=== PATIENT | female | born 1980 | race Caucasian/White ===

== ENCOUNTER 2019-01-12 10:30 | Emergency (ER) | payer OTHER ==
[~2019-01-12] VITALS: Ht 170.2 cm; Wt 60.8 kg
[2019-01-12 10:30] VITALS: BP 111/52
--- NOTE | 2019-01-12 10:30 | NUR ---
PATIENT BIB W/C TO ER BED 1.
--- NOTE | 2019-01-12 10:35 | NUR ---
PT IS A 38 Y/O FEMALE WHO PRESENTS TO THE ED C/O N/V/D. PT STATES THAT IT STARTED X2 DAYS AGO. PT REPORTS 5/10 ACHING ABD PAIN THAT DOES NOT RADIATE. PT DENIES CP, SOB, REPORTS NAUSEA/VOMITING/DIARRHEA. PT AWAKE AND ALERT, RR EVEN/UNLABORED. PT REPOSITIONED FOR COMFORT, BED IN LOWEST POSITION. ER MD DR. MILLER NOTIFIED. WILL CONTINUE TO MONITOR. NO PMH NKA
--- NOTE | 2019-01-12 10:39 | NUR ---
Patient being evaluated by physician at bedside.
--- NOTE | 2019-01-12 10:40 | NUR ---
PATIENT UNABLE TO PROVIDE URINE AT THIS TIME.
[2019-01-12] MEDS ORDERED: NACL 0.9% 1,000 ML IV SCH (10:43)
[2019-01-12] MEDS ORDERED: FAMOTIDINE 20 MG/2 ML VIAL IVP ONE (10:45)
[2019-01-12] MEDS ORDERED: METOCLOPRAMIDE 10 MG/2 ML INJ VIAL IVP ONE (10:45)
[2019-01-12] MEDS ORDERED: ONDANSETRON 4 MG/2 ML VIAL IVP ONE (10:45)
[2019-01-12] MEDS ORDERED: LACTATED RINGERS 1,000 ML IV ONE (10:45)
[2019-01-12 11:20] LABS: BASOPHILS # (AUTO) 0.1 K/uL (0.00-0.22); BASOPHILS % (AUTO) 0.3 % (0.0-2.0); EOSINOPHILS % (AUTO) 0.2 % (0.0-4.0); HEMATOCRIT 40.6 % (36-48); HEMOGLOBIN 13.4 g/dL (12.0-16.0); LYMPHOCYTES # (AUTO) 0.1 K/uL (2.5-16.5); LYMPHOCYTES % (AUTO) 0.3 % (20.5-51.1); MEAN CORPUSCULAR HEMOGLOBIN 28 pg (27-31); MEAN CORPUSCULAR HGB CONC 33 g/dL (33-37); MEAN CORPUSCULAR VOLUME 85.1 fL (80-94); MONOCYTES # (AUTO) 0.1 K/uL (0.8-1.0); MONOCYTES % (AUTO) 0.6 % (1.7-9.3); NEUTROPHILS % (AUTO) 98.6 % (42.2-75.2); PLATELET COUNT (AUTO) 165 K/uL (140-450); RED BLOOD CELL COUNT(AUTO) 4.77 MIL/uL (4.20-5.40); RED CELL DISTRIBUTION WIDTH 13.2 % (11.6-13.7); WHITE BLOOD COUNT (AUTO) 22.3 K/uL (4.8-10.8)
[2019-01-12 11:29] LABS: ALBUMIN 3.2 g/dL (3.4-5.0); AMYLASE 36 U/L (25-115); ANION GAP 15.2 (8-16); ASPARTATE AMINOTRANSFERASE 29 U/L (15-37); CHLORIDE 92 mmol/L (98-107); CREATININE 2.5 mg/dL (0.6-1.3); GFR ARICAN-AMERICAN 28 mL/min (>90); GLUCOSE 133 mg/dL (74-106); LIPASE 83 U/L (73-393); MAGNESIUM 1.1 mg/dL (1.8-2.4); POTASSIUM 3.2 mmol/L (3.5-5.1); SODIUM SERUM 127 mmol/L (136-145); TOTAL BILIRUBIN 0.8 mg/dL (0.0-1.0); UREA NITROGEN, BLOOD 39 mg/dL (7-18)
[2019-01-12 11:33] LABS: ACETONE, SERUM NEGATIVE (NEGATIVE)
--- NOTE | 2019-01-12 11:35 | NUR ---
PATIENT RESTING AT THIS TIME.
[2019-01-12] MEDS ORDERED: LEVOFLOXACIN 500 MG/D5W PREMIX 100 ML IV ONE (11:40)
[2019-01-12] MEDS ORDERED: NACL 0.9% 1,000 ML IV ONE ×2 (11:40→15:30)
[2019-01-12] MEDS ORDERED: DEXAMETHASONE 10 MG/ML VIAL IVP ONE (11:40)
[2019-01-12] MEDS ORDERED: metroNIDAZOLE 500 MG/NS PREMIX 100 ML IV ONE (11:40)
[2019-01-12] MEDS ORDERED: NACL 0.9% 2,000 ML IV SCH (11:49)
[2019-01-12] MEDS ORDERED: KCL 20 MEQ/WATER INJ PREMIX 100 ML IV ONE ×2 (11:50→15:30)
[2019-01-12] MEDS ORDERED: MAG SULF 2000 MG/WATER PREMIX 50 ML IV ONE (11:50)
--- NOTE | 2019-01-12 12:55 | NUR ---
PATIENT PROVIDED URINE AND STOOL SAMPLE AT THIS TIME.
[2019-01-12 13:29] LABS: APPEARANCE,URINE HAZY (CLEAR); BILIRUBIN,URINE NEGATIVE (NEGATIVE); BLOOD, URINE 1+ (NEGATIVE); COLOR,URINE YELLOW (YELLOW); LEUKOCYTE ESTERASE ,URINE 2+ (NEGATIVE); NITRITE, URINE NEGATIVE (NEGATIVE); PH,URINE 5.5 (5.0-9.0); UGLUCOSE NEGATIVE (NEGATIVE)
[2019-01-12 13:50] LABS: RBC,URINE 0-5 /HPF (0-5)
--- NOTE | 2019-01-12 13:55 | NUR ---
PATIENT RESTING AT THIS TIME; NO SIGNS OF DISTRESS.
[2019-01-12 14:43] LABS: ALBUMIN 2.5 g/dL (3.4-5.0); ANION GAP 16.6 (8-16); CARBON DIOXIDE 20.8 mmol/L (21-32); CREATININE 1.7 mg/dL (0.6-1.3); POTASSIUM 3.4 mmol/L (3.5-5.1); TOTAL BILIRUBIN 0.8 mg/dL (0.0-1.0)
[2019-01-12] MEDS ORDERED: SODIUM BICARBONATE 8.4% PFS 50 MEQ/50 ML SYR IVP ONE (15:30)
[2019-01-12 16:00] LABS: HEMATOCRIT 36.6 % (36-48); MEAN CORPUSCULAR HEMOGLOBIN 28 pg (27-31); MEAN CORPUSCULAR HGB CONC 33 g/dL (33-37); MEAN CORPUSCULAR VOLUME 85.1 fL (80-94); PLATELET COUNT (AUTO) 139 K/uL (140-450); RED CELL DISTRIBUTION WIDTH 13.4 % (11.6-13.7); WHITE BLOOD COUNT (AUTO) 22.8 K/uL (4.8-10.8)
[2019-01-12] MEDS ORDERED: ACETAMINOPHEN EXTRA STRENGTH 500 MG TAB PO ONE (16:05)
[2019-01-12 16:28] LABS: BASOPHILS % (MANUAL) 0 % (0-2); EOSINOPHILS % (MANUAL) 0 % (0-4); LYMPHOCYTES % (MANUAL) 0 % (20-46)
[2019-01-12 16:29] LABS: MONOCYTES % (MANUAL) 1 % (5-12)
--- NOTE | 2019-01-12 17:30 | NUR ---
PATIENT REPORT GIVEN TO FRED CHANDLER. TRANSFER OF CARE AT THIS TIME.
--- NOTE | 2019-01-12 17:38 | NUR ---
received pt from laurie melendez. pt awake, alert. on RA, no s/s of respiratory distress noted. checked pt showing hypotension, notified .
--- NOTE | 2019-01-12 19:22 | NUR ---
Dr. Luo evaluating patient at bedside.
--- NOTE | 2019-01-12 19:34 | NUR ---
PT RESTING IN BED, STATED SHE FEELS FINE. FAMILY AT BEDSIDE.
--- NOTE | 2019-01-12 20:21 | NUR ---
PT AMBULATED TO BATHROOM WITHOUT DIFFICULTY.
[2019-01-12 20:37] LABS: BASOPHILS # (AUTO) 0.2 K/uL (0.00-0.22); BASOPHILS % (AUTO) 0.9 % (0.0-2.0); EOSINOPHILS % (AUTO) 0.2 % (0.0-4.0); HEMATOCRIT 37.3 % (36-48); HEMOGLOBIN 12.2 g/dL (12.0-16.0); LYMPHOCYTES # (AUTO) 0.1 K/uL (2.5-16.5); LYMPHOCYTES % (AUTO) 0.5 % (20.5-51.1); MEAN CORPUSCULAR HEMOGLOBIN 28 pg (27-31); MEAN CORPUSCULAR HGB CONC 33 g/dL (33-37); MEAN CORPUSCULAR VOLUME 85.5 fL (80-94); MONOCYTES # (AUTO) 0.1 K/uL (0.8-1.0); MONOCYTES % (AUTO) 0.4 % (1.7-9.3); NEUTROPHILS # (AUTO) 21.3 K/uL (1.8-7.7); PLATELET COUNT (AUTO) 137 K/uL (140-450); RED BLOOD CELL COUNT(AUTO) 4.36 MIL/uL (4.20-5.40); RED CELL DISTRIBUTION WIDTH 13.6 % (11.6-13.7); WHITE BLOOD COUNT (AUTO) 21.7 K/uL (4.8-10.8)
[2019-01-12 20:46] LABS: ANION GAP 16.4 (8-16); CARBON DIOXIDE 18.9 mmol/L (21-32); CREATININE 1.4 mg/dL (0.6-1.3); POTASSIUM 4.3 mmol/L (3.5-5.1)
[2019-01-12 20:52] LABS: ALBUMIN 2.5 g/dL (3.4-5.0); TOTAL BILIRUBIN 0.5 mg/dL (0.0-1.0)
[2019-01-12 21:50] VITALS: BP 98/57
--- NOTE | 2019-01-12 21:50 | NUR ---
Patient discharged with v/s stable. Written and verbal after care instructions given and explained. Patient alert, oriented and verbalized understanding of instructions. Ambulatory with steady gait. All questions addressed prior to discharge. ID band removed. Patient advised to follow up with PMD. Rx of ZOFRAN ,FLAGYL AND CIPRO given. Patient educated on indication of medication including possible reaction and side effects. Opportunity to ask questions provided and answered.
== END 2019-01-12 21:50 | disposition home or self-care (01) ==
LOC: MED 10:30
DX: A09 Infectious gastroenteritis and colitis, unspecified (principal); N17.9 Acute kidney failure, unspecified; E86.1 Hypovolemia; E87.1 Hypo-osmolality and hyponatremia; E87.6 Hypokalemia; E86.0 Dehydration; E87.2 Acidosis
CPT/HCPCS: 36415; 71045; 80053; 81001; 81025; 82009; 82150; 82272; 82553; 83605; 83690; 83735; 84484; 84703; 85025; 87040; 87045; 87086; 87427; 89055; 93005; 96361; 96365; 96366; 96368; 96375; 99284; J1100; J1956; J2405; J2765; J3475; J3480; J3490; J7030; J7120; Q0092; 81002